=== PATIENT | female | born 1995 | race Two or more races ===

== ENCOUNTER 2018-10-09 17:31 | Emergency (ER) | payer SELFPAY ==
[~2018-10-09] VITALS: Ht 160 cm; Wt 775.0 kg
[2018-10-09 17:38] VITALS: BP 126/92
== END 2018-10-09 18:30 | disposition left against medical advice (07) ==
LOC: EMS 17:34
DX: T78.40XA Allergy, unspecified, initial encounter (principal); Z53.21 Procedure and treatment not carried out due to patient leaving prior to being seen by health care provider